=== PATIENT | male | born 1940 | race Caucasian/White ===

== ENCOUNTER 2017-02-21 07:57 | Outpatient (RCR) | payer MEDICARE, OTHER ==
[~2017-02-21 07:57] MED LIST: ASPIRIN 32325 MG/TAB PO; HCTZ12.5TAB; ZYLOPRIM 300MG300 MG
== END 2017-03-19 11:10 | disposition still patient (30) ==
LOC: MKS.ESL.PT 07:57
DX: Z01.818 Encounter for other preprocedural examination (principal); M17.12 Unilateral primary osteoarthritis, left knee
CPT/HCPCS: G8978-GP; G8979-GP; G8980-GP

== ENCOUNTER → 2017-03-09 | Outpatient (CLI) | payer MEDICARE, OTHER | LOC: COL.LAB 10:10 | DX: Z01.812 Encounter for preprocedural laboratory examination (principal) ==

== ENCOUNTER → 2017-04-27 | Outpatient (CLI) | payer MEDICARE, OTHER | LOC: COL.RAD 12:39 | DX: M16.12 Unilateral primary osteoarthritis, left hip (principal) | CPT/HCPCS: J3301; Q9967 ==

== ENCOUNTER 2017-05-16 08:00 | Outpatient (RCR) | payer MEDICARE, OTHER | END 2017-06-17 | LOC: MKS.ESL.PT | DX: Z47.1 Aftercare following joint replacement surgery (principal); M17.12 Unilateral primary osteoarthritis, left knee; Z96.652 Presence of left artificial knee joint | CPT/HCPCS: G0283-GP; G8978-GP; G8979-GP; G8980-GP ==

== ENCOUNTER 2017-08-06 15:29 | Outpatient (RCR) | payer MEDICARE, OTHER, BC | END 2017-08-07 10:41 | disposition home or self-care (01) | LOC: MKS.ESL.PT 15:29 | DX: Z01.818 Encounter for other preprocedural examination (principal); M16.12 Unilateral primary osteoarthritis, left hip | CPT/HCPCS: G8978-GP; G8979-GP; G8980-GP ==

== ENCOUNTER → 2017-08-06 | Outpatient (CLI) | payer MEDICARE, BC ==
[2017-08-06 13:12] LABS: HIV 1/2 Antibodies Non-Reactive; HIV-1p24 Antigen Non-Reactive
== END ==
LOC: COL.LAB 11:51
PROVIDERS: Orthopaedic Surgery
DX: Z01.812 Encounter for preprocedural laboratory examination (principal); M16.12 Unilateral primary osteoarthritis, left hip

== ENCOUNTER 2017-11-02 10:00 | Outpatient (RCR) | payer MEDICARE, OTHER, BC ==
[~2017-11-02 10:00] MED LIST changes: +ASPI325T6 PO; -HCTZ12.5TAB; +HCTZ12.5TAB PO; +NORCO 325 MG-7.1 TAB PO; +OXY IR5 MG PO; +ZESTRIL 20MG TA20 MG PO; +ZYLOPRIM 300MG300 MG PO
== END 2017-11-06 15:12 | disposition home or self-care (01) ==
LOC: MKS.ESL.PT 10:00
DX: Z47.1 Aftercare following joint replacement surgery (principal); M16.12 Unilateral primary osteoarthritis, left hip; Z96.642 Presence of left artificial hip joint
CPT/HCPCS: G8978-GP; G8979-GP; G8980-GP